=== PATIENT | male | born 1945 | race Two or more races ===

== ENCOUNTER 2017-03-29 09:53 | Day surgery (SDC) | payer MEDICARE, BC ==
--- NOTE | 2017-03-29 11:17 | Operative Report ---
Operative Report DATE OF SURGERY: 03/29/17 Operative Report: The risks, benefits and alternatives of the procedure including risks of bleeding, perforation requiring surgery are explained to the patient in detail and informed consent is obtained. Patient was taken back to the endoscopy suite and placed in the left, lateral decubital position. Patient denies having any chest pain or shortness of breath. He has a pacemaker that has been implanted. Patient had stopped his Coreg 3 days prior to the procedure on his own accord. There were no changes in his vitals. He was placed in the left lateral decubital position. Timeout was called. Conscious sedation medications are provided. A rectal examination is done which did not reveal any masses, tears or fissures. An Olympus videoscope was inserted into the patient's rectum. The scope was then carefully advanced all the way to the cecum. The cecum was identified by the usual anatomical landmarks including the ileocecal valve as well as the appendiceal office. Photodocumentation was obtained. Scope was then sequentially pulled back via the various segments of the colon including the ascending colon, hepatic flexure, transverse colon, splenic flexure, descending colon finding to the rectosigmoid portions of the colon. Retroflexion maneuvers performed. No changes of vital signs are noted. The risks benefits and alternatives of the procedure explained to the patient in detail and informed consent is obtained.A GIF Olympus video scope was inserted into the patient's mouth and hypopharynx, the esophagus is identified intubated and insufflated, the scope was then advanced through the esophagus stomach and duodenum, retroflexion maneuver is done the esophagus stomach and first and second portions of the duodenum examined No changes in patient's clinical condition. Blood pressure is improved. Patient denies any chest pain. PREOPERATIVE DIAGNOSIS: Weight loss early satiety. Personal history of polyps POSTOPERATIVE DIAGNOSIS: Small polyps status post removal with biopsy forceps. Internal hemorrhoids. Mild gastritis status post biopsy rule out Helicobacter pylori OPERATION: Colonoscopy with biopsy. EGD with biopsy SURGEON: TOMMY BONILLA ANESTHESIA: Moderate Sedation - 3 mg of Versed. Conscious sedation monitoring time 30 minutes. TISSUE REMOVED OR ALTERED: As noted above. COMPLICATIONS: None. ESTIMATED BLOOD LOSS: None. INTRAOPERATIVE FINDINGS: As described above. PROCEDURE: Patient tolerated procedure well. No immediate postprocedure complications are noted. Patient sent back to recovery in good condition. No chest pain either prior, duration all post procedure for 30 minutes. Patient discharged in good condition. Discharge date 03/29/2017. Discharge diet: Regular. Discharge activity: Regular. 2-3 week follow-up to discuss findings. Patient is instructed call the office or proceed to the emergency room should there be any further problems or questions. He does have a cardiology appointment soon with his manager nursing home.
[2017-03-29] MEDS ORDERED: MIDAZOLAM 2 MG/2 ML INJ ONE ×2 (11:50)
[2017-03-29 12:03] VITALS: BP 161/84
== END 2017-03-29 12:05 | disposition home or self-care (01) ==
LOC: END 09:53
PROVIDERS: ATTEND Internal Medicine Gastroenterology
PROC: 0DBP8ZX Excision of Rectum, Via Natural or Artificial Opening Endoscopic, Diagnostic (ICD-10-PCS; principal; 2017-03-29 10:30)
PROC: 0DB68ZX Excision of Stomach, Via Natural or Artificial Opening Endoscopic, Diagnostic (ICD-10-PCS; 2017-03-29 10:30)
DX: Z12.11 Encounter for screening for malignant neoplasm of colon (principal); K64.8 Other hemorrhoids; K29.50 Unspecified chronic gastritis without bleeding; D12.8 Benign neoplasm of rectum; E03.9 Hypothyroidism, unspecified; E11.9 Type 2 diabetes mellitus without complications; E78.5 Hyperlipidemia, unspecified; I50.9 Heart failure, unspecified; Z79.4 Long term (current) use of insulin; Z95.0 Presence of cardiac pacemaker
CPT/HCPCS: 43239; 45380; 82962; 88342 ×2; 88305 ×2; J2250